=== PATIENT | male | born 1945 | race Caucasian/White ===

== ENCOUNTER → 2017-07-16 | Outpatient (CLI) | payer OTHER ==
[~2017-07-16] MED LIST: ALL100 PO; BENA1TAB49 PO; BENAZAPRIL PO; BUPR-163 PO; EZET1TAB64 PO; LOR5/325 PO; SIMVASTATIN
--- NOTE | 2017-07-16 16:43 | RADIOLOGY IMAGING REPORT ---
[place] [facility] [place] Yaakov Campa : 1945 MR: [id number] V: [id number] EXAM DATE: ORDERING PHYSICIAN: WES ELIZONDO TECHNOLOGIST: [place] [facility] [place] Yaakov Campa : 1945 Visit/Account:[id number] Date of Sevice: 07/16/2017 EXAMINATION: Aorta ultrasound with duplex Doppler evaluation HISTORY: Post vascular surgery], peripheral vascular disease COMPARISON: None. FINDINGS: Suprarenal abdominal aorta: 2.2 x 2.3 cm AP and transverse dimensions Superior infrarenal abdominal aorta: 1.6 x 1.7 cm AP and transverse dimensions Mid infrarenal abdominal aorta: 1.6 x 1.7 cm AP and transverse dimensions Inferior infrarenal abdominal aorta: 1.6 x 1.7 cm AP and transverse dimensions Proximal common iliac artery diameter: Left 11 mm; right 13 mm Aorta wall: Some shadowing calcifications are noted within the aortic wall Incidental noted are bilateral renal cysts Aorta and proximal common iliac artery are patent by duplex Doppler ultrasound. IMPRESSION: No evidence of an abdominal aortic aneurysm Some shadowing calcifications are noted within the aortic wall Incidental note of bilateral renal cysts Report Dictated By: Leida Jay MD at 07/16/2017 4:34 PM Report E-Signed By: Leida Jay MD at 07/16/2017 4:38 PM WSN:[email or web address]
--- NOTE | 2017-07-16 16:55 | RADIOLOGY IMAGING REPORT ---
FACILITY: [facility] PATIENT NAME: Yaakov Campa : 1945 MR: [id number] V: [id number] EXAM DATE: ORDERING PHYSICIAN: WES ELIZONDO TECHNOLOGIST: Location: [facility] [place] Patient: Yaakov Campa : 1945 Visit/Account:[id number] Date of Sevice: 07/16/2017 Exam type: ANKLE BRACHIAL INDICES History: Peripheral vascular disease Comparison: None. Findings: The segmental pressure in the right brachial artery is 139 mmHg. The segmental pressure in the right dorsalis pedis artery is 141 mmHg. The segmental pressure in the right posterior tibial artery is 1 74 mmHg. The segmental pressure in the right great toe is 82 mmHg. Pressure gradient between the ri ght dorsalis pedis artery in the right great toe is 59 The POOJA on the right is 1.25 and the TBI on the right is 0.59 The segmental pressure in the left brachial artery is 133 mmHg. Signal pressure the left dorsalis pe dis artery is 140 no murmurs mercury. The segmental pressure in the left posterior tibial artery is 169 mmHg. Segmental pressure in the left great toe is 80 mmHg. Pressure gradient between the left d orsalis pedis artery in the left great toe is 60. POOJA on the left is 1.21 and the TBI in the left is 0.58. There is no significant dampening of the waveforms at the ankles IMPRESSION: 1. Pressure gradient between the right dorsalis pedis artery in the right great toe was 59 and betwe en the left dorsalis pedis artery and the left great toe was 60. POOJA on the right 1.25 and TBI in the right 0.59 POOJA on the left 1.22 and TBI in the left 0.58 Report Dictated By: Leida Jay MD at 07/16/2017 4:47 PM Report E-Signed By: Leida Jay MD at 07/16/2017 4:50 PM WSN:NAS
--- NOTE | 2017-07-16 17:02 | RADIOLOGY IMAGING REPORT ---
FACILITY: [facility] PATIENT NAME: Yaakov Campa : 1945 MR: [id number] V: [id number] EXAM DATE: ORDERING PHYSICIAN: WES ELIZONDO TECHNOLOGIST: Location: [facility] [place] Patient: Yaakov Campa : 1945 Visit/Account:[id number] Date of Sevice: 07/16/2017 Exam type: ARTERIAL BILAT LOWER EXT History: Peripheral vascular disease Comparison: None. Findings: Vascular evaluation of the right lower extremity is as follows Right common femoral artery triphasic flow with a peak systolic velocity of 115 cm/s. Profunda femoral artery biphasic flow and a peak systolic velocity of 70.1 cm/s Proximal right SFA triphasic flow and a peak systolic velocity of 85.3 cm/s Mid right SFA triphasic flow with a peak systolic velocity of 83.4 cm/s Distal SFA weak triphasic flow and a peak systolic velocity of 49.3 cm/s Proximal right popliteal artery weak triphasic flow and a peak systolic velocity 52.9 cm per second Distal right popliteal artery weak triphasic flow and a peak systolic velocity of 52.9 cm per second Right anterior tibial artery with weak triphasic flow and a peak systolic velocity of 49.5 cm per sec ond Right peroneal artery weak triphasic flow and a peak systolic velocity of 58.1 cm per second Proximal right posterior tibial artery is weak triphasic flow and a peak systolic velocity of 62.4 cm per second Mid right posterior tibial artery weak triphasic flow with a peak systolic velocity of 79.8 cm/s Distal right posterior tibial artery triphasic flow and a peak systolic posterior 71.4 cm/s Right dorsalis pedis artery biphasic flow and a peak systolic velocity of 30.8 cm/s Vascular evaluation of the left lower extremity is as follows left common femoral artery triphasic fl ow and a peak systolic velocity of 97.8 cm/s Profunda femoral artery with weak triphasic flow and a peak systolic velocity of 67.3 cm/s Proximal SFA triphasic flow and a peak systolic velocity of 97.2 centers per second Mid SFA triphasic flow in the peak systolic velocity of 65.2 cm/s Distal SFA weak triphasic flow and a peak systolic velocity of 72.6 centers per second Proximal popliteal artery triphasic flow and a peak systolic velocity of 47.8 centers per second Distal popliteal artery with weak triphasic flow and a peak systolic velocity of 48.9 centers per sec ond Peroneal artery triphasic flow and a peak systolic velocity of 54.8 cm per sec Anterior tibial artery biphasic flow and a peak systolic velocity of 42 centers per second Proximal posterior tibial artery weak triphasic flow and a peak systolic velocity 56.2 cm/s Mid posterior tibial artery with weak triphasic flow and a peak systolic velocity of 50.4 centers per second Distal posterior tibial artery with triphasic flow and a peak systolic velocity of 54.9 centers per s econd Dorsalis pedis artery biphasic flow and a peak systolic posterior 42 cm/s IMPRESSION: 1. Triphasic and biphasic flow throughout the lower extremity arterial tree as detailed above with ac companying velocities Report Dictated By: Leida Jay MD at 07/16/2017 4:50 PM Report E-Signed By: Leida Jay MD at 07/16/2017 4:58 PM VIDAL:AMICIVN
== END ==
LOC: US 01:19
PROVIDERS: ATTEND Nurse Practitioner Family
DX: I70.0 Atherosclerosis of aorta (principal); N28.1 Cyst of kidney, acquired
CPT/HCPCS: 93922; 93925; 93978